=== PATIENT | female | born 1965 | race Caucasian/White ===

== ENCOUNTER 2018-08-25 09:40 | Day surgery (SDC) | payer BC, OTHER ==
[2018-08-24 14:34] VITALS: BMI 30.9
[2018-08-25] MEDS ORDERED: Lactated Ringer's 500 ML IV SCH (10:30)
[2018-08-25] MEDS ORDERED: Lactated Ringer's 1,000 ML IV ONE (11:05)
[2018-08-25] MEDS ORDERED: Propofol 10 mg/ml Inj (20 ML) ONE ×2 (11:08→11:38)
[2018-08-25 12:02] VITALS: TEMP 98.5
[2018-08-25 12:30] VITALS: RESP 17; O2SAT 98
[2018-08-25 14:21] VITALS: BP 136/92; PULSE 85
== END 2018-08-25 14:12 | disposition home or self-care (01) ==
LOC: C.ENDO 09:40
PROVIDERS: ATTEND Internal Medicine Gastroenterology
DX: Z12.11 Encounter for screening for malignant neoplasm of colon (principal); D12.2 Benign neoplasm of ascending colon; D12.7 Benign neoplasm of rectosigmoid junction; D12.5 Benign neoplasm of sigmoid colon; K57.90 Diverticulosis of intestine, part unspecified, without perforation or abscess without bleeding; K64.8 Other hemorrhoids
CPT/HCPCS: 45380; 45384; 45385; 88305; J2001; J2704; J7120